=== PATIENT | male | born 2005 | race Two or more races ===

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

== ENCOUNTER 2024-09-07 12:15 | Outpatient (RCR) | payer OTHER ==
[~2024-09-07 12:15] MED LIST: DOXY-440 PO
== END 2024-09-09 ==
LOC: M PT 12:15
PROVIDERS: ATTEND Orthopaedic Surgery
DX: M25.511 Pain in right shoulder (principal); M25.512 Pain in left shoulder

== ENCOUNTER 2024-10-15 08:36 | Emergency (ER) | payer OTHER ==
[~2024-10-15] VITALS: Ht 188 cm; Wt 82.4 kg
[2024-10-15 10:28] LABS: BASO # 0.0 10^3/uL (0.0-0.2); BASO % 0.5 % (0.0-1.0); EOS # 0.1 10^3/uL (0.0-0.5); EOS % 0.8 % (0.0-3.0); LYMPH # 2.0 10^3/uL (1.5-5.0); LYMPH % 30.9 % (24.0-44.0); MONO # 0.4 10^3/uL (0.0-0.8); MONO % 6.3 % (2.0-8.0); NEUTROPHILS # 3.9 10^3/uL (1.5-8.5); NEUTROPHILS % 61.3 % (36.0-66.0); PLATELET COUNT, AUTOMATED 254 10^3/uL (150-450)
[2024-10-15 11:10] LABS: ALT/SGPT 20 U/L (7.0-40); AST/SGOT 18 U/L (<34); CALCIUM LEVEL 9.7 MG/DL (8.5-10.1); CARBON DIOXIDE LEVEL 29 MMOL/L (20-31); CHLORIDE LEVEL 102 MMOL/L (98-107); CREATININE FOR GFR 0.79 MG/DL (0.70-1.30); GLOMERULAR FILTRATION RATE > 90.0 (>60); POTASSIUM SERUM 4.2 MMOL/L (3.5-5.1); SODIUM LEVEL 142 MMOL/L (136-145)
[2024-10-15] MEDS: MAALOX 30 ML SUSP *UDC PO ONE (11:36)
[2024-10-15 13:00] VITALS: BP 132/84; TEMP 98.2; O2SAT 97
[2024-10-15] MEDS ORDERED: PANT20TA6 PO (13:00)
== END 2024-10-15 13:09 | disposition home or self-care (01) ==
LOC: M ED 08:36
DX: R10.10 Upper abdominal pain, unspecified (principal); K59.00 Constipation, unspecified; Z79.899 Other long term (current) drug therapy; Z91.010 Allergy to peanuts; Z91.018 Allergy to other foods

== ENCOUNTER 2024-10-16 20:07 | Emergency (ER) | payer OTHER ==
[~2024-10-16] VITALS: Ht 188 cm; Wt 82.4 kg
[~2024-10-16 20:07] MED LIST changes: +PANT20TA6 PO
[2024-10-16 21:19] LABS: BASO # 0.0 10^3/uL (0.0-0.2); BASO % 0.4 % (0.0-1.0); EOS # 0.1 10^3/uL (0.0-0.5); EOS % 1.5 % (0.0-3.0); LYMPH # 3.1 10^3/uL (1.5-5.0); LYMPH % 41.4 % (24.0-44.0); MONO # 0.6 10^3/uL (0.0-0.8); MONO % 8.5 % (2.0-8.0); NEUTROPHILS # 3.6 10^3/uL (1.5-8.5); NEUTROPHILS % 48.1 % (36.0-66.0); PLATELET COUNT, AUTOMATED 229 10^3/uL (150-450)
[2024-10-16] MEDS: MAALOX 30 ML SUSP *UDC PO ONE (21:19)
[2024-10-16 21:50] LABS: ALT/SGPT 20 U/L (7.0-40); AST/SGOT 16 U/L (<34); CALCIUM LEVEL 9.5 MG/DL (8.5-10.1); CARBON DIOXIDE LEVEL 30 MMOL/L (20-31); CHLORIDE LEVEL 102 MMOL/L (98-107); CREATININE FOR GFR 0.77 MG/DL (0.70-1.30); GLOMERULAR FILTRATION RATE > 90.0 (>60); POTASSIUM SERUM 4.2 MMOL/L (3.5-5.1); SODIUM LEVEL 141 MMOL/L (136-145)
[2024-10-16] MEDS: GASTROGRAFIN SOLUTION 30ML PO SCH (22:10)
[2024-10-16] MEDS ORDERED: ISOVUE-370 76% 100 ML VIAL As Ordered ONE (23:26)
[2024-10-17 01:00] VITALS: BP 137/67; TEMP 97.6; O2SAT 96
[2024-10-17] MEDS ORDERED: PEPC1TAB5 PO (01:04)
[2024-10-17] MEDS ORDERED: CARA1TAB6 PO (01:04)
[2024-10-17] MEDS: FAMOTIDINE 20 MG TAB PO ONE (01:08)
[2024-10-17] MEDS: SUCRALFATE 1 GM TAB PO ONE (01:08)
[2024-10-17] MEDS: LIDOCAINE VISCOUS 2% SOLN 15 ML UDC PO ONE (01:08)
== END 2024-10-17 01:24 | disposition home or self-care (01) ==
LOC: M ED 20:07
DX: K30 Functional dyspepsia (principal); Z91.010 Allergy to peanuts; Z91.018 Allergy to other foods; Z79.899 Other long term (current) drug therapy
CPT/HCPCS: 36415; 74177; 80048; 80076; 83690; 85025; 93041; 99284; Q9963; Q9967

== ENCOUNTER → 2025-01-12 | Outpatient (CLI) | payer OTHER ==
[~2025-01-12] MED LIST changes: +CARA1TAB6 PO; +PEPC1TAB5 PO
== END ==
LOC: M RAD 13:31
PROVIDERS: ATTEND Student in an Organized Health Care Education/Training Program
DX: R59.9 Enlarged lymph nodes, unspecified (principal)